=== PATIENT | female | born 1950 | race Hispanic/Latino ===

== ENCOUNTER 2025-02-20 12:21 | Inpatient (IN) | payer OTHER, MEDICARE ==
[~2025-02-20] VITALS: Ht 157.5 cm; Wt 60.4 kg
[~2025-02-20 12:21] MED LIST: ATENOLOL50 MG PO; AZOR 10-20 MG1 EACH PO; AZOR 5-20 MG T1 EACH PO; CETIRIZINE HCL10 MG PO; FLEXERIL10 MG PO; FLUOXETINE HCL20 MG PO; HYDROCODON-ACE1 EAC8 PO; MELOXICAM15 MG PO; METFORMIN HCL500 MG PO; PRAVACHOL40 MG PO; TENORMIN100 MG PO
[2025-02-20] MEDS ORDERED: IRBESARTAN150 MG PO (13:24)
[2025-02-20] MEDS ORDERED: PRAVASTATIN SOD40 MG PO (13:24)
[2025-02-20] MEDS ORDERED: METOPROLOL SUCC50 MG PO (13:24)
[2025-02-20] MEDS ORDERED: AMLODIPINE BESYL5 MG PO (13:24)
[2025-02-20] MEDS ORDERED: HYDROCHLOROTH12.5 MG PO (13:25)
[2025-02-20] MEDS ORDERED: FLUTICASONE PRO16 GM NAS (13:25)
[2025-02-20 13:54] LABS: BASOPHILS 0.2 % (0.1-1.2); HEMATOCRIT 35.5 % (34.1-44.9); HEMOGLOBIN 12.3 g/dL (11.2-15.7); MCH 29.4 PG (25.6-32.2); MCHC 34.6 g/dL (32.2-35.5); MCV 84.9 fL (79.4-94.8); MONOCYTES 7.1 % (4.7-12.5); NEUTROPHILS 75.7 % (34.0-71.1); PLATELET COUNT 296 K/uL (182-369); RBC 4.18 M/uL (3.93-5.22)
[2025-02-20 14:11] LABS: ALBUMIN 3.7 g/dL (3.4-5.0); ALBUMIN/GLOBULIN RATIO 1.06 (1.1-2.4); ANION GAP 9.3 (7-21); BILIRUBIN, TOTAL 0.5 mg/dL (0.2-1.0); BUN/CREATININE RATIO 24.28 (6.0-28.6); CALCIUM 9.1 mg/dL (8.5-10.1); CREATININE, SERUM 0.7 mg/dL (0.55-1.02); POTASSIUM 3.3 mmol/L (3.5-5.1); PROTEIN, TOTAL 7.2 g/dL (6.4-8.2)
[2025-02-20 14:36] LABS: ABO O; ANTIBODY SCREEN NEGATIVE; RH POSITIVE
[2025-02-20] MEDS ORDERED: DEXTROSE 50% 50 ML SYR IV PRN ×2 (16:30)
[2025-02-20] MEDS ORDERED: POTASSIUM CHLORIDE 10 MEQ TABCR PO ONE (16:30)
[2025-02-20] MEDS ORDERED: DEXTROSE 5% 1,000 ML IV PRN (16:30)
[2025-02-20] MEDS ORDERED: SODIUM CHLORIDE 0.9% 1,000 ML IV SCH (16:30)
[2025-02-20] MEDS ORDERED: GLUCAGON,HUMAN RECOMBINANT 1 MG/ML VIAL SUB-Q PRN (16:30)
[2025-02-20] MEDS ORDERED: ACETAMINOPHEN 325 MG TAB PO PRN (16:30)
[2025-02-20] MEDS ORDERED: IBLOOD GLUCOSE TEST STRIP 1 EA TEST XX PRN (16:30)
[2025-02-20] MEDS ORDERED: ondansetron HCL 4 MG/2 ML VIAL IV PRN (16:30)
[2025-02-20] MEDS ORDERED: INSULIN LISPRO 100 UNIT/ML ML SUB-Q SCH (17:00)
[2025-02-20] MEDS ORDERED: IBLOOD GLUCOSE TEST STRIP 1 EA TEST VI SCH (17:00)
--- NOTE | 2025-02-20 17:20 | NUR ---
PATIENT ARRIVES TO FLOOR IN STRETCHER ESCORTED BY PAMELA BARRON. PATIENT TRANSFERED TO HOSPITAL BED VIA TRANSFER AIR MATTRESS BY THIS RN, NAZIA SANTIAGO, BEATRICE SANTIAGO, AND MAGALIE VICKERS. PATIENT TOLERATES TRANSFER WELL. VS AND WT OBTAINED. BRIEF AND PUREWICK PLACED. PATIENT'S LEFT LEG NOTED TO BE EXTERNALLY ROTATED AND SHORTER THAN HER RIGHT LEG. LEFT LEG PLACED IN ARROYO'S TRACTION WITH 5 POUND WEIGHT. PATIENT TOLERATES WELL, DENIES PAIN. THIS RN REMAINS IN ROOM TO ADMIT PATIENT.
--- NOTE | 2025-02-20 17:22 | EKG ---
[facility] [address] [facility] [place] [address] Signed Sinus tachycardia Nonspecific T wave abnormality Abnormal ECG No previous ECGs available Confirmed by Candy Mcmillan MD () on 02/20/2025 5:22:33 PM Electronically Signed By: CANDY MCMILLAN MD 02/20/251721 PATIENT NAME: ELICEO GUZMÁN ELVIRA Electrocardiogram DATE OF : 48 PHYSICIAN: CANDY MCMILLAN MD REPORT #: [id number] REPORT IS CONFIDENTIAL AND NOT TO BE RELEASED WITHOUT AUTHORIZATION
[2025-02-20 17:25] VITALS: BP 124/74
[2025-02-20] MEDS ORDERED: OXYCODONE HCL 5 MG TAB PO PRN (18:00)
--- NOTE | 2025-02-20 18:42 | NUR ---
ADMISSION COMPLETE. PATIENT CONTINUES TO DENY PAIN. PATIENT EATS SANDWICH BOX AND DRINKS WATER, TOLERATES WELL. PATIENT/PATIENT'S SON SIGN CONSENT FORM FOR PATIENT'S SON TO BE PRIMARY FLOOR COVERINGS INSTALLER WIH GRAND-DAUGHTER SECONDARY FLOOR COVERINGS INSTALLER PER PATIENT'S REQUEST. PATIENT HAS NO REQUESTS, CALL LIGHT AND PERSONAL BELONGINGS IN REACH.
[2025-02-20 18:53] VITALS: BP 124/74
--- NOTE | 2025-02-20 19:11 | NUR ---
RECEIVED REPORT. PT ALERT IN BED WITH LEG TO TRACTION. TRACTION BAG RESTING ON FLOOR, RE-ADJUSTED BY DAYSHIFT RN AND NOW FREE-HANGING. PT DENIES CURRENT PAIN. SUPPORTIVE FAMILY AT BEDSIDE, NO NEEDS PRESENTLY. CALL LIGHT IN REACH
[2025-02-20 21:12] LABS: ANION GAP 10.1 (7-21); BUN/CREATININE RATIO 20.48 (6.0-28.6); CREATININE, SERUM 0.83 mg/dL (0.55-1.02); POTASSIUM 4.1 mmol/L (3.5-5.1)
--- NOTE | 2025-02-20 21:26 | NUR ---
VITALS, ASSESSMENT. PT DENIES ANY PRESENT PAIN. ARROYO'S TRACTION IN PLACE. SUPPORTIVE GRANDAUGHTERS AT BEDSIDE, ASSISTING WITH TRANSLATION, ONE PLANS TO STAY OVERNIGHT. PT REPORTS SHE HAS NOT YET SIGNED SURGICAL CONSENT. REVIEWED PLAN OF CARE WITH PT. NO OTHER NEEDS, CALL LIGHT IN REACH
[2025-02-20 21:28] VITALS: BP 111/58
[2025-02-20 21:29] VITALS: BP 111/58
--- NOTE | 2025-02-20 22:37 | NUR ---
PT ALERT, RESTING IN BED, NO NEEDS PRESENTLY. PROVIDED SHEETS/BLANKETS TO GRANDDAUGHTER STAYING OVERNIGHT. CALL LIGHT IN REACH
[2025-02-21] VITALS (10 sets, daily range): BP systolic 116–140; BP diastolic 54–67
--- NOTE | 2025-02-21 00:21 | NUR ---
VITALS, BG CHECK. GIVEN 3 UNITS INSULIN FOR BG OF 210. PT NOW NPO, REMOVED WATER FROM BEDSIDE. NO NEEDS, CALL LIGHT IN REACH
[2025-02-21] MEDS ORDERED: INSULIN LISPRO 100 UNIT/ML ML SUB-Q SCH ×3 (00:30→12:00)
--- NOTE | 2025-02-21 01:04 | NUR ---
RESPONDED TO BEEPING CPOX MACHINE. PT SATTING 97%, ADJUSTED SETTING ON SPD ALARM. NO NEEDS, CALL LIGHT IN REACH
--- NOTE | 2025-02-21 01:57 | NUR ---
PT RESTING WITH EYES CLOSED, RISE AND FALL OF CHEST OBSERVED. CALL LIGHT IN REACH
--- NOTE | 2025-02-21 02:23 | NUR ---
RESPONDED TO BEEPING IV, REPLACED FLUIDS. PT ALERT, THOUGH QUICKLY BACK TO SLEEP. NO NEEDS, CALL HERBERT DELATORRE
[2025-02-21] MEDS ORDERED: IBLOOD GLUCOSE TEST STRIP 1 EA TEST VI SCH ×3 (03:00→12:00)
--- NOTE | 2025-02-21 04:27 | NUR ---
PT RESTING IN BED WITH EYES CLOSED, RISE AND FALL OF CHEST OBSERVED. CALL LIGHT IN REACH
[2025-02-21 05:23] LABS: BASOPHILS 0.1 % (0.1-1.2); EOSINOPHILS 0.1 % (0.7-5.8); HEMOGLOBIN 11.1 g/dL (11.2-15.7); LYMPHOCYTES 13.2 % (19.3-51.7); MCH 29.3 PG (25.6-32.2); MCHC 34.7 g/dL (32.2-35.5); MCV 84.4 fL (79.4-94.8); MONOCYTES 8.6 % (4.7-12.5); NEUTROPHILS 77.4 % (34.0-71.1); PLATELET COUNT 295 K/uL (182-369); RBC 3.79 M/uL (3.93-5.22)
[2025-02-21 05:38] LABS: ALBUMIN 3.1 g/dL (3.4-5.0); ALBUMIN/GLOBULIN RATIO 0.91 (1.1-2.4); ANION GAP 10.3 (7-21); BILIRUBIN, TOTAL 0.4 mg/dL (0.2-1.0); BUN/CREATININE RATIO 24.65 (6.0-28.6); CALCIUM 8.4 mg/dL (8.5-10.1); CREATININE, SERUM 0.73 mg/dL (0.55-1.02); MAGNESIUM 2.2 mg/dL (1.8-2.4); PHOSPHORUS, INORGANIC 2.7 mg/dL (2.5-4.9); POTASSIUM 4.3 mmol/L (3.5-5.1); PROTEIN, TOTAL 6.5 g/dL (6.4-8.2)
--- NOTE | 2025-02-21 06:48 | NUR ---
vitals, bg check, chg bath, and pre-op checklist. Replaced gown and bedding. Removed from IV. OR nurse in room. Supportive family at bedside
[2025-02-21] MEDS ORDERED: CEFAZOLIN SODIUM 2 GM/20 ML SYR IV SCH ×2 (07:00→15:00)
[2025-02-21] MEDS ORDERED: TRANEXAMIC ACID IN NACL,ISO-OS 1,000 MG/100 ML PIGGYBACK IV SCH ×2 (07:00→10:25)
--- NOTE | 2025-02-21 07:10 | NUR ---
REPORT RECEIVED FROM PAMELA BRO. PATIENT IS OFF THE FLOOR AT THIS TIME.
[2025-02-21] MEDS ORDERED: BUPIVACAINE 0.75% IN DEXTROSE 2 ML AMP ONE ×2 (07:41→07:42)
[2025-02-21] MEDS ORDERED: ondansetron HCL 4 MG/2 ML VIAL ONE (07:41)
[2025-02-21] MEDS ORDERED: fentaNYL citrate 100 MCG/2 ML VIAL ONE (07:41)
[2025-02-21] MEDS ORDERED: propofoL 200 MG/20 ML VIAL ONE (07:41)
[2025-02-21] MEDS ORDERED: LIDOCAINE HCL 2% 5 ML SDV ONE (07:41)
[2025-02-21] MEDS ORDERED: KETAMINE in NS 50 MG/5 ML SYR ONE (07:42)
[2025-02-21] MEDS ORDERED: MORPHINE SULFATE 1 MG/ML VIAL ONE (07:43)
[2025-02-21] MEDS ORDERED: KETOROLAC TROMETHAMINE 30 MG/ML VIAL IV PRN (07:45)
--- NOTE | 2025-02-21 08:00 | NUR ---
UR CLINICAL REVIEW: 2 MN FOR [facility] COORDINATOR MEETS INPT FOR HIP FX/HYPOKELEMIA MEDICARE INPT 02/20/25 @ 1624 ORDER MATCHES REG NO AUTH REQUIRED PER MEDICARE GUIDELINES DISCHARGE PENDING SURGICAL PROCEDURE AND EVALUATION
[2025-02-21] MEDS ORDERED: PHENYLEPHRINE HCL 10 MG/ML VIAL ONE (08:06)
--- NOTE | 2025-02-21 08:15 | NUR ---
PATIENT REMAINS OFF THE FLOOR.
[2025-02-21] MEDS ORDERED: ondansetron HCL 4 MG/2 ML VIAL IV PRN (08:30)
[2025-02-21] MEDS ORDERED: NALOXONE HCL 0.4 MG SYR IV PRN (08:30)
[2025-02-21] MEDS ORDERED: diphenhydrAMINE HCL 50 MG/ML VIAL IV PRN (08:30)
[2025-02-21] MEDS ORDERED: HYDROmorphone HCL 1 MG/ML SYR IV PRN (08:30)
[2025-02-21] MEDS ORDERED: PROCHLORPERAZINE EDISYLATE 10 MG/2 ML VIAL IV PRN (08:30)
[2025-02-21] MEDS ORDERED: ASPIRIN 325 MG TAB PO SCH (09:00)
[2025-02-21] MEDS ORDERED: Insulin Regular, Human 100 UNIT/ML ML SUB-Q SCH (09:00)
[2025-02-21] MEDS ORDERED: LACTATED RINGER'S 1,000 ML IV ONE (09:01)
--- NOTE | 2025-02-21 09:15 | NUR ---
PATIENT REMAINS OFF THE FLOOR.
--- NOTE | 2025-02-21 09:20 | NUR ---
02/21/25 0920 Kathleen Lilly 0909 PT TO PACU SLEEPING O2 VIA MASK FOGGING NOTED IN MASK. BLOOD PRESSURES SOFT PHENYLEPHERINE GIVEN BY AGUSTIN RUTLEDGE.
--- NOTE | 2025-02-21 10:05 | NUR ---
PT ARRIVES TO MED SURG FROM PACU. PT DENIES PAIN. PT IS ABLE TO WIGGLE TOES LIFT LEGS BILAT OFF BED. SURGICAL SITE ASSESSED, QUARTER SIZE DRAINGAGE NOTED TO SURGICAL DRESSING. SCDS AND CPOX PLACED. VSS. FAMILY AT BEDSIDE. CALL LIGHT IN REACH
--- NOTE | 2025-02-21 10:09 | OR ---
[facility] [address] [place], [place] [address] Signed DATE OF OPERATION: 02/21/2025 SURGEON: Dana Lilly MD PREOPERATIVE DIAGNOSIS: Left intertrochanteric hip fracture. POSTOPERATIVE DIAGNOSIS: Left intertrochanteric hip fracture. PROCEDURE PERFORMED: Open reduction and internal fixation of left hip. APPRENTICE STYLIST: Shweta Nicholson. Shweta was present for all procedure. ANESTHESIA: Spinal. BLOOD LOSS: 250 mL. IMPLANTS: Four hole plate with a 90 mm lag and four 4.5 screws. BRIEF HISTORY: Savanna is a 74-year-old female who suffered a ground level fall after slipping in her kitchen yesterday. Risks and benefits of operative treatment were discussed with her and she elected to proceed. DESCRIPTION OF PROCEDURE: Once consent was obtained she was taken to the operating room. After adequate anesthesia she was placed on the fracture table. The right leg was placed in a leg pascual and extended and adducted. The left was placed in traction and was slightly abducted and Leadbetter maneuver was performed. The C-arm was brought in. The reduction was found to be quite good at that point. We then prepped and draped the hip in a standard sterile fashion. Using the free guide pin, we then marked out the position for the incision. A 6 inch incision was made and carried through skin and subcutaneous tissue. The IT band was divided longitudinally. The vastus lateralis was then split longitudinally in a blunt manner and elevated off the lateral femur. We then Electronically Signed By: DANA LILLY MD 02/21/25 1009 PATIENT NAME: SAVANNA GUZMÁN OPERATIVE REPORT DATE OF : 48 REPORT #: [id number] PHYSICIAN: DANA LILLY MD PCP: OUSMANE BALL PAC REPORT IS CONFIDENTIAL AND NOT TO BE RELEASED WITHOUT AUTHORIZATION [facility] [address] [place], [place] [address] Signed placed a subtrochanteric clamp around the lesser trochanter and reduced it in position. The 130 guide for the DHS system was then placed against the lateral femur and the guide pin was aligned with the femoral neck and the guide pin was advanced under biplanar fluoroscopy into a center center position in the head. This was then drilled and measured to a 90. 90 was then placed. She had excellent bone quality. We did elect to go with a DHS over an intramedullary wesley due to her very small medullary canal. The four hole plate was then placed over the lag screw and advanced until was set flush with the lateral femur. This was then held in position with a central 4.5 screw. Reduction and plate placement were found to be good. The remaining three screws distally were placed and the guide pin was removed. We then placed a cable around the bottom of the lesser trochanter, bringing it back into position and tensioning it appropriately. The cables were then cut. Once this was completed, the final radiograph showed good reduction and good plate placement screw lengths. The wound was then copiously irrigated with normal saline. The fascia was closed using #1 Stratafix, subcutaneous tissue with 0 Stratafix and skin with rosita. Wound was dressed with an Acticoat-7 dressing and she was awakened, taken to the recovery room in satisfactory condition. All sponge, needle, and instrument counts were correct. Dana Lilly MD BA/MYRIAML /[id number] Copies: ~ Electronically Signed By: DANA LILLY MD 02/21/25 1009 PATIENT NAME: SAVANNA GUZMÁN OPERATIVE REPORT DATE OF : 48 REPORT #: [id number] PHYSICIAN: DANA LILLY MD PCP: OUSMANE BALL PAC REPORT IS CONFIDENTIAL AND NOT TO BE RELEASED WITHOUT AUTHORIZATION
--- NOTE | 2025-02-21 10:38 | NUR ---
ASSESSMENT COMPLETE. PATIENT IS RESTING IN BED WITH SCDs IN PLACE AND CPOX AT BEDSIDE, MULTIPLE FAMILY MEMBERS ARE PRESENT. PATIENT DENIES ANY PAIN WHILE RESTING OR WITH MOVEMENT AT THIS TIME. DRESSING TO LEFT THIGH IS DRY AND INTACT WITH SMALL AMOUNT OF RED SHADOWING ALONG THE LENGTH OF COVERED INCISION - OUTLINED. PATIENT AGREEABLE TO ICE WATER AND SOME APPLESAUCE AT THIS TIME. SO FAR TOLERATING WELL. IVF INFUSING TO RIGHT AC AT 125ML/HR WNL. PATIENT HAS NO REQUESTS AT THIS TIME, CALL LIGHT AND PERSONAL BELONGINGS IN REACH.
--- NOTE | 2025-02-21 10:59 | NUR ---
VISITED DURING SPIRITUAL CARE ROUNDS. PT SUPPORTED BY EXTENSIVE FAMILY IN ROOM. REQUESTED VISIT. NO IMMEDIATE NEEDS. BRAKE MACHINE OPERATOR PROVIDED SUPPORTIVE PRESENCE, HOSPITALITY, PRAYER, FACILITATED INTERACTION WITH THERAPY ANIMAL. RELAYED REQUEST FOR VISIT TO VIA NOTE IN SACRISTRY.
--- NOTE | 2025-02-21 11:09 | NUR ---
VS OBTAINED AND RECORDED. PATIENT CONTINUES TO DENY PAIN. DRESSING ON HER LEFT HIP HAS RED SHADOWING THAT HAS NOT EXCEEDED THE PREVIOUSLY DRAWN OUTLINE. PATIENT DENIES NUMBNESS OR TINGLING AND WIGGLES HER TOES FOR THIS RN. SALTINE CRACKERS OFFERED, PATIENT ENCOURAGED TO EAT. DENIES NAUSEA. SCDs IN PLACE. CPOX AT BEDSIDE. HEMANTH HOSE ON. NO REQUESTS, CALL LIGHT AND PERSONAL BELONGINGS IN REACH.
--- NOTE | 2025-02-21 11:13 | NUR ---
INTO SEE PATIENT. PERSONAL HEALTH INFORMATION REVIEWED. , DAUGHTER, NIECE AND GRANDDAUGHTER AT BEDSIDE. PATIENT GREEK SPEAKING ONLY. CONSENTED TO NIECE TO TRANSLATE. PATIENT LIVES IN A HOUSE WITH 2 STEPS INTO HOME. DENIES DIFFCULTY PRIOR TO INJURY OF GETTING INTO HOME. DOES NOT USE ANY DME. GAVE FAMILY INFORMATION ON [employer] FOR FRONT WHEELED WALKER. PATIENT DRIVES AT BASELINE. FAMILY VERY SUPPORTIVE AND WILL STAY IF HER AND NEED ANY ASSISTANCE. DENIES ANY FINANICAL DIFFCULTIES. FAMILY WILL TAKE PATIENT HOME WHEN MEDICAL READY FOR DISCHARGE.
[2025-02-21] MEDS ORDERED: PHARMACY RENAL DOSE ADJUSTMENT 1 DOSE MISC PO SCH (12:00)
--- NOTE | 2025-02-21 12:19 | NUR ---
[place] [facility] [place] AND VOIDS CLEAR, YELLOW URINE. PROVIDES HER OWN YEHUDA-CARE. PULL-UP PLACED FOR PATIENT COMFORT. PATIENT REQUESTING TO SIT IN RECLINER, TRANSFERS FROM BSC TO RECLINER WITH SBA ONLY. BLE ELEVATED, SCDs BACK IN PLACE, WARM BLANKETS PROVIDED. DRESSING TO PATIENT'S LEFT THIGH HAS BECOME SATURATED WITH RED BLOOD BUT IS STILL INTACT AND DRY. PATIENT DENIES PAIN AT REST, STATES "A TINY BIT" OF PAIN WHILE AMBULATING. PATIENTL ADAMANTLY REFUSES PAIN MEDICATIONS. ICE PACK IN PLACE. PATIENT HAS MULTIPLE VISITORS PRESENT IN ROOM. LUNCH TRAY ARRIVES AND PATIENT STARTS TO EAT. NO REQUESTS, CALL LIGHT AND PERSONAL BELONGINGS IN REACH.
--- NOTE | 2025-02-21 13:08 | NUR ---
MD MCMILLAN IN TO ASSESS AND VISIT PATIENT. QUESTIONS AND CONCERNS ANSWERED AND ADDRESSED. FINAL SET OF POST-OP VITALS OBTAINED AND RECORDED. PATIENT REMAINS UP IN RECLINER WITH BLE ELEVATED, SCDs IN PLACE. NO REQUESTS, CALL LIGHT AND PERSONAL BELONGINGS IN REACH, PATIENT HAS VISITOR AT CHAIRSIDE INTERPRETING FOR HER.
--- NOTE | 2025-02-21 13:27 | NUR ---
MD COFFEY NOTIFIED OF PATIENT'S INCREASED BLEEDING AT HER DRESSING SITE. ORDERS 1G TXA IV NOW AND DRESSING TO BE CHANGED AND REPLACED WITH SPICA AND FOUR ABD PADS. ORDERS PLACED.
[2025-02-21] MEDS ORDERED: TRANEXAMIC ACID IN NACL,ISO-OS 1,000 MG/100 ML PIGGYBACK IV ONE (13:30)
--- NOTE | 2025-02-21 15:27 | NUR ---
PHYSICAL THERAPY IN WORKING WITH PATIENT. PATIENT'S SPICA DRESSING REMAINS IN PLACE, NO BLEEDING OR SHADOWING NOTED. PATIENT CONTINUES TO DENY PAIN. PHYSICAL THERAPY REMAINS WORKING WITH PATIENT.
--- NOTE | 2025-02-21 16:22 | NUR ---
MEDICATION ADMINISTERED, SEE MAR. PATIENT REQUESTING TO USE RESTROOM, PATIENT AMBULATES WITH TOE TOUCH WEIGHT BEARING AND FWW TO [facility], VOIDS, PROVIDES HER OWN PERICARE, AND RETURNS TO RECLINER. SPICA DRESSING C/D/I, ICE PACK IN PLACE, BLE ELEVATED WITH SCDs IN PLACE. PATIENT DENIES PAIN OR DISCOMFORT EVEN WITH AMBULATION. NO REQUESTS, CALL LIGHT AND PERSONAL BELONGINGS IN REACH. PATIENT HAS TWO VISITORS PRESENT IN ROOM THROUGHOUT.
--- NOTE | 2025-02-21 18:57 | NUR ---
PATIENT UP IN RECLINER WITH BLE ELEVATED AND SCDs IN PLACE. DENIES PAIN. REQUESTS ICE WATER - PROVIDED. NO OTHER REQUESTS, PATIENT HAS MULTIPLE VISITORS AT THIS TIME. CALL LIGHT AND PERSONAL BELONGINGS IN REACH.
--- NOTE | 2025-02-21 19:19 | NUR ---
RECEIVED REPORT. PT ALERT IN CHAIR, SUPPORTIVE FAMILY IN ROOM. DENIES PAIN PRESENTLY, NO NEEDS. CALL LIGHT IN REACH
--- NOTE | 2025-02-21 19:59 | NUR ---
RESPONDED TO CALL LIGHT, ASSISTED PT FROM CHAIR TO COMMODE 1PA FWW, THEN TO BED. SUPPORTIVE FAMILY IN ROOM. NO NEEDS PRESENTLY, CALL LIGHT IN REACH
[2025-02-21] MEDS ORDERED: SENNOSIDES 1 TAB PO SCH (21:00)
--- NOTE | 2025-02-21 22:01 | NUR ---
ASSESSMENT, VITALS, EVENING MEDS. GIVEN PRN TYLENOL FOR 2/10 PAIN OF LEG. PROVIDED COFFEE/WATER FOR PT GUESTS. ASSISTED TO BEDSIDE COMMODE STAND AND PIVOT 1PA WITH FWW. NO OTHER NEEDS PRESENTLY. [facility] PLANS TO STAY OVERNIGHT IN ROOM. CALL LIGHT IN REACH
[2025-02-22] VITALS (8 sets, daily range): BP systolic 100–143; BP diastolic 56–76
--- NOTE | 2025-02-22 | NUR ---
Responded to beeping IV. Replaced IV fluids. Pt alert, but quickly back to sleep. Call light in reach, supportive family in room
--- NOTE | 2025-02-22 01:10 | NUR ---
RESPONDED TO BEEPING CPOX MACHINE. PT SATTING 96% ON ROOM AIR, ADJUSTED SENSOR TO GOOD EFFECT. NO OTHER NEEDS, CALL LIGHT IN REACH
--- NOTE | 2025-02-22 01:39 | NUR ---
VITALS. PT SLEEPING, THOUGH ROUSABLE. NO NEEDS, CALL LIGHT IN REACH
--- NOTE | 2025-02-22 03:57 | NUR ---
ASSISTED TO BEDSIDE COMMODE, THEN BACK TO BED. PT REPORTS 5/10 PAIN, GIVEN PRN TYLENOL AND REFILLED ICE PACK. GIVEN WATER TO SUPPORTIVE GRANDDAUGHTER IN ROOM. NO OTHER NEEDS, CALL LIGHT IN REACH
[2025-02-22 05:32] LABS: BASOPHILS 0.2 % (0.1-1.2); EOSINOPHILS 0.7 % (0.7-5.8); HEMOGLOBIN 8.2 g/dL (11.2-15.7); LYMPHOCYTES 24.1 % (19.3-51.7); MCH 29.8 PG (25.6-32.2); MCHC 34.2 g/dL (32.2-35.5); MCV 87.3 fL (79.4-94.8); MONOCYTES 9.6 % (4.7-12.5); NEUTROPHILS 65.1 % (34.0-71.1); PLATELET COUNT 202 K/uL (182-369); RBC 2.75 M/uL (3.93-5.22)
[2025-02-22 05:56] LABS: ALBUMIN 2.6 g/dL (3.4-5.0); ALBUMIN/GLOBULIN RATIO 0.93 (1.1-2.4); ANION GAP 8.4 (7-21); BILIRUBIN, TOTAL 0.3 mg/dL (0.2-1.0); BUN/CREATININE RATIO 16.9 (6.0-28.6); CALCIUM 8.2 mg/dL (8.5-10.1); CREATININE, SERUM 0.71 mg/dL (0.55-1.02); POTASSIUM 4.4 mmol/L (3.5-5.1); PROTEIN, TOTAL 5.4 g/dL (6.4-8.2)
--- NOTE | 2025-02-22 07:43 | NUR ---
RECEIVED REPORT FROM DIEUDONNE SANTIAGO. PT RESTING IN BED WITH EYES CLOSED, RESPIRATIONS EVEN AND UNLABORED. FAMILY AT BEDSIDE.
[2025-02-22] MEDS ORDERED: ondansetron HCL 4 MG/2 ML VIAL IV PRN (08:30)
--- NOTE | 2025-02-22 08:45 | NUR ---
PT DRESSING REAPPLIED ACTEKOTE WAS NOT IN PLACE. PER DR. CFOFEY ORDER, ACTEKOTE PLACED, FOLLOWED BY TWO ABD PADS AND THEN SPIKA DRESSING. PT TOLERATED WELL.
[2025-02-22] MEDS ORDERED: FLUOXETINE HCL 20 MG CAP PO SCH (09:00)
--- NOTE | 2025-02-22 09:38 | NUR ---
MORNING MEDICATION GIVEN AND ASSESSMENT COMPLETED. PAIN MEDICATION PROVIDED PER PT REQUEST AND PT ASSISTED TO BEDSIDE COMMODE AND BACK TO BED. FAMILY AT BEDSIDE AND CALL LIGHT WITHIN REACH. PT DENIES FURTHER NEEDS AT THIS TIME.
--- NOTE | 2025-02-22 10:14 | NUR ---
PHYSICAL THERAPY IN ROOM WITH PT.
--- NOTE | 2025-02-22 11:12 | NUR ---
PT RESTING IN CHAIR IN ROOM WITH FAMILY IN ROOM. PT WATCHING TV. PT WATCHING TV, CALL LIGHT WITHIN REACH. PT DENIES NEEDS OR PAIN AT THIS TIME.
--- NOTE | 2025-02-22 11:43 | NUR ---
24 HOUR POST OP CPOX ORDER DISCONTINUED
--- NOTE | 2025-02-22 12:30 | NUR ---
PT RESTING IN CHAIR IN ROOM EATING LUNCH. NO NEEDS AT THIS TIME, FAMILY AT BEDSIDE. CALL LIGHT WITHIN REACH.
--- NOTE | 2025-02-22 13:33 | NUR ---
PT RESTING IN CHAIR IN ROOM WATCHING TV. FAMILY AT BEDSIDE.PT GIVEN PAIN MEDICATION PER REQUEST.
--- NOTE | 2025-02-22 14:57 | NUR ---
DR. COFFEY CALLED AND INFORMED OF SATURATION ON DRESSING WITH SCANT BLOOD NOTED TO HAVE GONE THROUGH DRESSING AND ONTO ABD PAD. PER DR, 1GM TXA ORDERED AND PT TO BE ON STRICT BEDREST AND PUREWICK PLACED. PT AND FAMILY INFORMED AND VERBALIZED UNDERSTANDING. MOVED PT TO BED 2PA WITH FWW. PT TOLERATED WELL. NO INCREASE IN BLEEDING ON SURGICAL SITE AT THIS TIME.
[2025-02-22] MEDS ORDERED: TRANEXAMIC ACID IN NACL,ISO-OS 1,000 MG/100 ML PIGGYBACK IV ONE (15:00)
--- NOTE | 2025-02-22 15:25 | NUR ---
DR MCMILLAN IN ROOM DISCUSSING LAB RESULTS WITH PT AND FAMILY.
--- NOTE | 2025-02-22 17:01 | NUR ---
PT INSULIN GIVEN. PT RATES PAIN 4/10 BUT UNABLE TO HAVE PAIN MEDICATION IT IS TOO SOON, PT REPOSITIONED FOR COMFORT. PT DENIES FURTHER NEEDS AT THIS TIME.
--- NOTE | 2025-02-22 18:48 | NUR ---
PT WENT FROM TOE TOUCH TO BSC WITH ONE PERSON ASSIST TO STRICT BEDREST AFTER ACTEKOTE DRESSING BECAME SATURATED IN BLOOD 75%. MD MADE AWARE AND TXA ORDERED AND GIVEN WELL PUREWICK PLACED. PT HAS BEEN USING TYLENOL AND OXYXODONE FOR PAIN COVERAGE. PT IS SL AND TAKING ORAL FLUIDS. PT IS OCCITAN SPEAKING ONLY AND HAS FAMILY AT BEDSIDE TO INTERPRET PER HER REQUEST.
[2025-02-22 19:02] LABS: BASOPHILS 0.2 % (0.1-1.2); EOSINOPHILS 0.7 % (0.7-5.8); HEMATOCRIT 24.9 % (34.1-44.9); HEMOGLOBIN 8.4 g/dL (11.2-15.7); LYMPHOCYTES 22.2 % (19.3-51.7); MCH 29.4 PG (25.6-32.2); MCHC 33.7 g/dL (32.2-35.5); MCV 87.1 fL (79.4-94.8); MONOCYTES 9.1 % (4.7-12.5); NEUTROPHILS 67.6 % (34.0-71.1); PLATELET COUNT 219 K/uL (182-369); RBC 2.86 M/uL (3.93-5.22)
--- NOTE | 2025-02-22 19:11 | NUR ---
RECEIVED REPORT AND ASSESSED L HIP DRESSING. ACTICOAT DRESSING SATURATED, THOUGH NOT EXTENDING BEYOND DRESSING AND UNCHANGED FROM AFTERNOON PER DAY SHIFT RN. NO NEEDS PRESENTLY, SUPPORTIVE FAMILY IN ROOM.
--- NOTE | 2025-02-22 20:05 | NUR ---
FAMILY STATES PT IN INCREASING PAIN. GIVEN PRN TORADOL TO GOOD EFFECT. INSTRUCTED ON USE OF I.S. D/T MILDLY ELEVATED TEMPERATURE. VITALS. REFILLED ICE PACK AND ICE WATER. NO OTHER NEEDS, CALL LIGHT IN REACH
--- NOTE | 2025-02-22 21:55 | NUR ---
ASSESSMENT, EVENING MEDS. PT REPORTS PAIN GREATLY IMPROVED FROM EARILER, DECLINES OFFERED OXYCODONE FOR NOW. BG CHECK, VSS. SUPPORTIVE FAMILY AT BEDSIDE. NO OTHER NEEDS PRESENTLY, CALL LIGHT IN REACH
[2025-02-23] VITALS (7 sets, daily range): BP systolic 121–138; BP diastolic 61–68
--- NOTE | 2025-02-23 00:33 | NUR ---
PT RESTING WITH EYES CLOSED, RISE AND FALL OF CHEST OBSERVED. CALL ALAN SONALI REACH
--- NOTE | 2025-02-23 02:10 | NUR ---
PT RESTING WITH EYES CLOSED, RISE ND FALL OF CHEST OBSERVED. CALL LIGHT IN REACH
--- NOTE | 2025-02-23 03:58 | NUR ---
PT RESTING WITH EYES CLOSED, RESP EVEN AND UNLABORED. GRANDDAUGHTER IN ROOM, CALL LIGHT IN REACH
[2025-02-23 05:15] LABS: BASOPHILS 0.2 % (0.1-1.2); EOSINOPHILS 0.8 % (0.7-5.8); HEMOGLOBIN 8.5 g/dL (11.2-15.7); LYMPHOCYTES 18.6 % (19.3-51.7); MCH 29.6 PG (25.6-32.2); MCV 87.1 fL (79.4-94.8); MONOCYTES 8.9 % (4.7-12.5); NEUTROPHILS 71.1 % (34.0-71.1); PLATELET COUNT 235 K/uL (182-369); RBC 2.87 M/uL (3.93-5.22)
[2025-02-23 05:39] LABS: ALBUMIN 2.5 g/dL (3.4-5.0); ALBUMIN/GLOBULIN RATIO 0.74 (1.1-2.4); ANION GAP 6.9 (7-21); BILIRUBIN, TOTAL 0.5 mg/dL (0.2-1.0); BUN/CREATININE RATIO 14.7 (6.0-28.6); CALCIUM 8.5 mg/dL (8.5-10.1); CREATININE, SERUM 0.68 mg/dL (0.55-1.02); POTASSIUM 3.9 mmol/L (3.5-5.1); PROTEIN, TOTAL 5.9 g/dL (6.4-8.2)
--- NOTE | 2025-02-23 06:24 | NUR ---
PT ALERT IN BED, C/O MILD INCISIONAL PAIN. DECLINES OXYCODONE, THOUGH AGREES TO PRN TYLENOL AND ICE PACK. NO OTHER NEEDS, CALL LIGHT IN REACH
--- NOTE | 2025-02-23 07:13 | NUR ---
VERBAL REPORT RECEIVED FROM PAMELA BRO. PT RESTS IN BED, AWAKE AND ALERT, GRANDAUGHTER AT BEDSIDE. NO REQUESTS AT THIS TIME.
--- NOTE | 2025-02-23 08:19 | NUR ---
PT FINISHED BREAKFAST, GOT PT FRESH WATER FAMILY MEMBER IN ROOM - ALSO HELPS TRANSLATE - DUTCH SPEAKER GOT FAMILY MEMBER FRESH WATER ALSO CHECKED PT WOUND, ICE PACK PRESENT WITH ICE STILL IN IT, NO BLEEDING ON BANDAGES CALL LIGHT WITHIN REACH, FAMILY MEMBER IN ROOM
--- NOTE | 2025-02-23 09:31 | NUR ---
PT'S PUREWICK HAD LEAKED, FULL BED/LINEN CHANGE COMPLETED, PUREWICK REPLACED AND THEN REMOVED DUE TO DR'S ORDER CHANGE - PT CAN NOW GET UP AND WALK TO BATHROOM NEEDED PT ROLLED FROM SIDE TO SIDE, REPORTING NO PAIN LINENS WERE CHANGED LEG COMPRESSION DEVICES TURNED BACK TIE WORKER LIGHT WITHIN REACH, FAMILY MEMBER IN ROOM
--- NOTE | 2025-02-23 10:15 | NUR ---
PT TALKING ON PHONE WHEN I ENTERED THE ROOM, WHILE LYING ON HER BED PT REPORTED FEELING A LITTLE WARM, BLANKETS WERE AT HER ANKLES FAMILY MEMBER IN ROOM CALL LIGHT WITHIN REACH OF PT AND BED LOWERED PT HAS LEG COMPRESSION DEVICES ON BOTH LEGS AND THEY ARE ON
--- NOTE | 2025-02-23 12:10 | NUR ---
PATIENT SITS UP IN CHAIR, FAMILY IN THE ROOM. REPORTS PAIN TOLERTABLE AT THIS TIME. CALL LIGHT IN REACH. NO REQUESTS AT THIS TIME.
--- NOTE | 2025-02-23 13:45 | NUR ---
PT WAS IN CHAIR WITH FAMILY IN THE ROOM AFTER VITALS WERE TAKEN PT ASKED TO USE THE TOILET, AMBULATED WITH STANDBY ASSIST AND THE USE OF THE WALKER PT THEN RETURNED TO THE BED, LEG COMPRESSION DEVICES WERE PLACED ON AND TURNED US ADMINISTRATIVE LAW JUDGE LIGHT WITHIN REACH, AND OVERHEAD LIGHTS WERE TURNED OFF BED LOWERED
--- NOTE | 2025-02-23 13:51 | NUR ---
PT ABULATED WITH WALKER AND STANDBY ASSIST FROM THE CHAIR TO THE TOILET AND FROM THE TOILET TO THE BED COMPRESSION DEVICES WERE PLACED BACK ON PT'S LEGS I'S & O'S WERE RECORDED PT HAS VISITORS IN THE ROOM CALL LIGHT WITHIN REACH OF PT PT REPORTED NO DIZZINESS WHEN AMBULATING AND RATED HER PAIN A 4 ON A 1-10 PAIN SCALE ONE OF THE VISITORS TRANSLATED FOR MAGALIE NICOLE
--- NOTE | 2025-02-23 15:30 | NUR ---
Patient moved from med-surg rm #[id number] to med-surg rm # [id number]. Patient oriented to room and call light.
--- NOTE | 2025-02-23 16:28 | NUR ---
OXYCODONE RECIEVED FOR REPORT OF LEFT HIP PAIN, SEE EMAR. PT RESTS IN BED AWAKE AND ALERT, VISITORS X2 AT BEDSIDE. PT WATCHES TV. HEEL EVELATED, SCDS IN PLACE TO BLE, TEDS TO BLE. ICE TO LEFT HIP. DRESSING TO LEFT HIP INTACT, NO NEW DRAINAGE NOTED. CALL LIGHT IN REACH, NO FURTHER REQUESTS AT THIS TIME.
--- NOTE | 2025-02-23 18:26 | NUR ---
TYLENOL RECEIVED FOR FEVER OF 101.8 F, TEACHING ON USE OF IS PROVIDED, PT RETURN DEMONSTRATES US OF IS AND VERBALIZES UNDERSTANDING, FAMILY AT BEDSIDE INCLUDED IN EDUCATION.
--- NOTE | 2025-02-23 18:46 | NUR ---
PT WAS LAYING IN BED, TOOK VITALS, THEN HELPED THE PT UP TO THE TOILET, CHANGED BRIEF, PT BRUSHED TEETH AND WASHED FACE AND HANDS RETURNED TO BED, LEG COMPRESSION DEVICES WERE PLACED BACK ON PT'S LEGS, AND MAGALIE NICOLE INFORMED PT'S NURSE THAT THE PT HAD A TEMP OF 100.3 CALL LIGHT ON BED WITH PT MAGALIE NICOLE GOT PT FRESH ICE WATER AND FRESH ICE IN ICE PACK ON PT'S HIP VISITORS IN PT'S ROOM
--- NOTE | 2025-02-23 19:35 | NUR ---
RECEIVED REPORT. PT ALERT, RESTING IN BED. VISITORS IN ROOM. CALL LIGHT IN REACH
--- NOTE | 2025-02-23 21:11 | NUR ---
VITALS, ASSESSMENT, EVENING MEDS. PT REPORTS PAIN IS MILD, THOUGH WITH OCCASIONAL SPIKES. GIVEN PRN PAIN MEDS. REFRESHED ICE WATER. NO OTHER NEEDS, CALL LIGHT IN REACH. SUPPORTIVE FAMILY AT BEDSIDE.
--- NOTE | 2025-02-23 22:58 | NUR ---
PT RESTING IN BED WITH EYES CLOSED. RISE AND FALL OF CHEST OBSERVED, CALL LIGHT IN REACH
[2025-02-24] VITALS (8 sets, daily range): BP systolic 117–147; BP diastolic 56–76
--- NOTE | 2025-02-24 01:13 | NUR ---
PT RESTING IN BED WITH EYES CLOSED, BREATHING EVEN AND UNLABORED. CALL LIGHT IN REACH, SUPPORT PERSON IN ROOM.
--- NOTE | 2025-02-24 02:18 | NUR ---
ASSISTED PT TO BATHROOOM, THEN BACK TO BED WITH HELP OF FUR TRIMMER. GIVEN TYLENOL, AND REPLACED ICE WATER AND ICE PACK. NO OTHER NEEDS, CALL LIGHT IN REACH
--- NOTE | 2025-02-24 04:15 | NUR ---
PT RESTING WITH EYES CLOSED, BREATHING EVEN AND UNLABORED. CALL LIGHT IN REACH, SUPPORT PERSON IN ROOM
[2025-02-24 05:22] LABS: BASOPHILS 0.2 % (0.1-1.2); EOSINOPHILS 1.2 % (0.7-5.8); HEMATOCRIT 25.2 % (34.1-44.9); HEMOGLOBIN 8.5 g/dL (11.2-15.7); LYMPHOCYTES 17.7 % (19.3-51.7); MCH 29.6 PG (25.6-32.2); MCHC 33.7 g/dL (32.2-35.5); MCV 87.8 fL (79.4-94.8); MONOCYTES 8.7 % (4.7-12.5); NEUTROPHILS 71.8 % (34.0-71.1); PLATELET COUNT 267 K/uL (182-369); RBC 2.87 M/uL (3.93-5.22)
[2025-02-24 05:38] LABS: ALBUMIN 2.4 g/dL (3.4-5.0); ALBUMIN/GLOBULIN RATIO 0.67 (1.1-2.4); ANION GAP 12.8 (7-21); BILIRUBIN, TOTAL 0.6 mg/dL (0.2-1.0); BUN/CREATININE RATIO 18.6 (6.0-28.6); CALCIUM 8.6 mg/dL (8.5-10.1); CREATININE, SERUM 0.86 mg/dL (0.55-1.02); MAGNESIUM 2.2 mg/dL (1.8-2.4); POTASSIUM 3.8 mmol/L (3.5-5.1)
--- NOTE | 2025-02-24 06:55 | NUR ---
PT RESTING IWTH EYES CLOSED, RISE AND FALL OF CHEST OBSERVED, CALL LIGHT IN REACH. SUPPORT PERSON AT BEDSIDE
--- NOTE | 2025-02-24 07:13 | NUR ---
VERBAL REPORT RECEIVED FROM PAMELA BRO. PT RESTS IN BED WITH EYES CLOSED, RESP EVEN AND UNLABORED, FAMILY X1 AT BEDSIDE.
[2025-02-24 08:23] LABS: BILIRUBIN, URINE NEGATIVE (negative); BLOOD/HGB, URINE NEGATIVE (Negative); KETONE, URINE NEGATIVE (Negative); LEUK ESTERASE, URINE NEGATIVE (negative); NITRITE, URINE NEGATIVE (negative)
--- NOTE | 2025-02-24 09:25 | NUR ---
DR. COFFEY IN TO SEE PT, VERBAL ORDER RECEIVED FOR CHANGE LEFT HIP DRESSING. OLD DRESSING REMOVED, INCISION WELL APPROXIMATED WITH CHANDA. CLEANSED WITH NS AND PATTED DRY. NEW ACTICOTE SURGICAL DRESSING APPLIED. PT TOLERATED WELL. ICE OVER LEFT HIP. SCDS IN PLACE, HEEL OFF LOADED. FAMILY X5 AT BEDSIDE. NO REQUESTS AT THIS TIME.
--- NOTE | 2025-02-24 09:49 | NUR ---
DR. MCMILLAN NOTIFIED OF PT PULSES 90-115 OVER LAST 24 HOURSA AND HOME MEDICATION METOPROLOL NOT CURRENTLY ACTIVE IN EMAR.
--- NOTE | 2025-02-24 11:51 | NUR ---
PT SITS UP IN RECLINER, AWAKE AND ALERT, FAMILY X5 IN ROOM. CALL LIGHT IN REACH, NO REQUESTS AT THIS TIME.
[2025-02-24] MEDS ORDERED: METOPROLOL SUCCINATE 50 MG TABCR PO SCH (12:34)
[2025-02-24] MEDS ORDERED: AMLODIPINE BESYLATE 5 MG TAB PO SCH (12:34)
--- NOTE | 2025-02-24 13:55 | NUR ---
PT SITS UP IN RECLINER, FAMILY MEMBERS X4 IN ROOM, VISITS. AWAKE AND ALERT, CALL LIGHT IN REACH, NO REQUESTS AT THIS TIME. USES IS INSTRUCTED.
--- NOTE | 2025-02-24 18:07 | NUR ---
PATIENT GIVEN 2 TYLENOL FOR 2/10 LEFT HIP PAIN, DENIES OTHER NEEDS.
--- NOTE | 2025-02-24 18:37 | NUR ---
PT BACK TO BED, AWAKE AND ALERT. TYLENOL RECEIVED FOR PAIN, SEE EMAR. PT PASSES BM. CALL LIGHT IN REACH. NO REQUESTS AT THIS TIME. FAMILY X2 AT BEDSIDE.
--- NOTE | 2025-02-24 19:36 | NUR ---
RECEIVED REPORT. PT STATES HER PAIN IS 4/10 AFTER TYLENOL, GIVEN PRN OXYCODONE. REFRESHED ICE WATER, NO OTHER NEEDS PRESENTLY. SUPPORTIVE FAMILY IN ROOM, CALL LIGHT IN REACH
--- NOTE | 2025-02-24 21:50 | NUR ---
VITALS, ASSESSMENT, EVENING MEDS. PT REPORTS NO JESSICA NPRESENTLY. REFRESHED ICE WATER. NO OTHER NEEDS, CALL HERBERT DELATORRE
--- NOTE | 2025-02-24 23:49 | NUR ---
PT RESTING IN BED WITH EYES CLOSED, RISE AND FALL OF CHEST NOTED. CALL LIGHT IN REACH
--- NOTE | 2025-02-25 00:59 | NUR ---
PT RESTING IN BED WITH EYES CLSOED, RESP EVEN AND UNLABORED. CALL LIGHT IN REACH
--- NOTE | 2025-02-25 02:50 | NUR ---
PT RESTING IN BED WITH CLOSED EYES, RISE AND FALL OF CHEST NOTED. CALL HERBERT DELATORRE
--- NOTE | 2025-02-25 04:15 | NUR ---
PT RESTING WITH EYES CLOSED, RISE AND FALL OF CHEST OBSERVED. CALL LIGHT IN REACH
--- NOTE | 2025-02-25 05:15 | NUR ---
VITALS. GIVEN PRN TYLENOL FOR MILD LEG PAIN. ASSISTED TO BATHROOM AND BACK TO BED WITH FWW, VOIDED ONCE. NO OTHER NEEDS, CALL LIGHT IN REACH, SUPPORT PERSON IN ROOM.
[2025-02-25 05:22] VITALS: BP 122/64
[2025-02-25 05:28] LABS: BASOPHILS 0.2 % (0.1-1.2); EOSINOPHILS 3.1 % (0.7-5.8); HEMATOCRIT 24.2 % (34.1-44.9); LYMPHOCYTES 28.6 % (19.3-51.7); MCH 29.1 PG (25.6-32.2); MCHC 33.1 g/dL (32.2-35.5); MONOCYTES 9.1 % (4.7-12.5); NEUTROPHILS 58.7 % (34.0-71.1); PLATELET COUNT 309 K/uL (182-369); RBC 2.75 M/uL (3.93-5.22)
[2025-02-25 05:52] LABS: ALBUMIN 2.3 g/dL (3.4-5.0); ALBUMIN/GLOBULIN RATIO 0.61 (1.1-2.4); ANION GAP 8.9 (7-21); BILIRUBIN, TOTAL 0.6 mg/dL (0.2-1.0); BUN/CREATININE RATIO 21.42 (6.0-28.6); CALCIUM 8.8 mg/dL (8.5-10.1); CREATININE, SERUM 0.84 mg/dL (0.55-1.02); POTASSIUM 3.9 mmol/L (3.5-5.1); PROTEIN, TOTAL 6.1 g/dL (6.4-8.2)
--- NOTE | 2025-02-25 07:22 | NUR ---
RECIEVED REPORT WITH PAMELA THOMPSON FROM MANAGER OF BUSINESS OPERATIONS PAMELA BRO. RHODA BOARD UPDATED, IN ROOM. PT IS PRIMARILY [place] SPEAKING; FAMILY TO TRANSLATE. CALL LIGHT WITHIN REACH.
[2025-02-25 09:05] VITALS: BP 120/58
--- NOTE | 2025-02-25 09:35 | NUR ---
Spoke with Savanna and her daughter. Pt is anxious to dc to home. They deny needs. Updated Dr. Lilly ordered PT/OT. They would like to use [facility]. I will fax referral and orders. They deny any further needs. Home with several family members to assist her.
--- NOTE | 2025-02-25 09:35 | NUR ---
PT IN BED AFTER EATING BREAKFAST, GRANDDAUGHTER IN ROOM. PT DENIES PAIN ATT. DRESSING [employer]. EDUCATION PRINTED IN [place] FOR HIGH IRON AND PROTIEN DIET. MICKY, REBEKAH MG IN ROOM
--- NOTE | 2025-02-25 09:46 | NUR ---
PT VISITING WITH CASE MANAGEMENT AT THIS TIME. NO NEEDS, CALL LIGHT IN REACH.
[2025-02-25 10:19] VITALS: BP 124/59
[2025-02-25] MEDS ORDERED: ASPIRIN325 MG PO (11:06)
--- NOTE | 2025-02-25 12:11 | NUR ---
PT SITTING UP WITH LUNCH TRAY. FAMILY IN ROOM. IV REMOVED, CATHETER INTACT. FAMILY AWAITING DISCHARGE. CALL LIGHT WITHIN REACH, NO NEEDS AT THIS TIME.
[2025-02-25 12:50] VITALS: BP 118/60
--- NOTE | 2025-02-25 16:31 | NUR ---
Chart faxed to [facility] with referral.
== END 2025-02-25 13:19 | disposition home or self-care (01) | DRG 481 ==
LOC: ED 12:21 → MS 16:41
PROVIDERS: Emergency Medicine; Specialist; ADMIT Family Medicine; ATTEND Family Medicine
PROC: 0QS704Z Reposition Left Upper Femur with Internal Fixation Device, Open Approach (ICD-10-PCS; principal; 2025-02-21 07:30)
DX: S72.142A Displaced intertrochanteric fracture of left femur, initial encounter for closed fracture (principal); E87.1 Hypo-osmolality and hyponatremia; E87.6 Hypokalemia; D64.9 Anemia, unspecified; E11.9 Type 2 diabetes mellitus without complications; F39 Unspecified mood [affective] disorder; I10 Essential (primary) hypertension; Z88.0 Allergy status to penicillin; E78.00 Pure hypercholesterolemia, unspecified; W01.0XXA Fall on same level from slipping, tripping and stumbling without subsequent striking against object, initial encounter; Z79.899 Other long term (current) drug therapy; Z79.84 Long term (current) use of oral hypoglycemic drugs; Z90.710 Acquired absence of both cervix and uterus; Z98.890 Other specified postprocedural states
CPT/HCPCS: 01210; 36415; 70450; 71045; 73502; 80048; 80053; 81003; 83735; 84100; 85025; 86850; 86900; 86901; 93005; 93010; 94762; 97110; 97116; 97161; 97530; A9270; C1713; J0690; J1171; J1815; J1885; J2003; J2274; J2371; J2405; J2704; J3010; J3490; J7030; J7121